=== PATIENT | female | born 1960 | race Caucasian/White ===

== ENCOUNTER 2017-07-14 09:14 | Day surgery (SDC) | payer OTHER ==
[2017-07-14] MEDS ORDERED: LIDOCAINE 2% (SDV) 5 ML INJ (10:16)
[2017-07-14] MEDS ORDERED: PROPOFOL 60 ML (10:16)
[2017-07-14] MEDS ORDERED: FENTAnyl 50 MCG/ML VIAL (10:16)
== END 2017-07-14 15:00 | disposition home or self-care (01) ==
LOC: GIL 09:14
DX: Z12.11 Encounter for screening for malignant neoplasm of colon (principal); D12.5 Benign neoplasm of sigmoid colon; K44.9 Diaphragmatic hernia without obstruction or gangrene; K21.9 Gastro-esophageal reflux disease without esophagitis; K57.90 Diverticulosis of intestine, part unspecified, without perforation or abscess without bleeding; K64.8 Other hemorrhoids; I10 Essential (primary) hypertension
CPT/HCPCS: 43239; 87081; 88305

== ENCOUNTER 2017-12-22 05:56 | Inpatient (IN) | payer OTHER ==
[2017-12-22] MEDS ORDERED: GLYCOPYRROLATE 0.4 MG INJ (06:29)
[2017-12-22] MEDS ORDERED: PROPOFOL 20 ML (06:29)
[2017-12-22] MEDS ORDERED: MIDAZOLAM 1 MG/ML 2 ML INJ (06:29)
[2017-12-22] MEDS ORDERED: ROCURONIUM 50 MG INJ (06:29)
[2017-12-22] MEDS ORDERED: LIDOCAINE 2% (SDV) 5 ML INJ (06:29)
[2017-12-22] MEDS ORDERED: FENTAnyl 50 MCG/ML VIAL (06:29)
[2017-12-22] MEDS ORDERED: NEOSTIGMINE 3 MG/3 ML SYRINGE (06:29)
[2017-12-22] MEDS ORDERED: DEXTROSE 5%-LR 1,000 ML IV (06:30)
[2017-12-22] MEDS ORDERED: NALOXONE (0.4 MG/ML) INJ IV (06:30)
[2017-12-22] MEDS ORDERED: CEFAZOLIN 2 GM/50 ML (PMX) 50 ML IVPB (06:30)
[2017-12-22] MEDS ORDERED: morphine SULFATE/PF (10 MG/10 ML) INJ (06:30)
[2017-12-22] MEDS ORDERED: ONDANSETRON 4 MG INJ (06:31)
[2017-12-22] MEDS ORDERED: DEXAMETHASONE 4 MG/ML 1 ML INJ (06:31)
[2017-12-22] MEDS ORDERED: BUPIVACAINE 0.75%/DEXT (SPINAL) 2 ML INJ (07:22)
[2017-12-22] MEDS ORDERED: FLUMAZENIL 0.5 MG INJ (10:30)
[2017-12-22] MEDS ORDERED: DIPHENHYDRAMINE 50 MG CAP PO (10:30)
[2017-12-22] MEDS: KETOROLAC 30 MG INJ IV ×3 (10:30→22:17)
[2017-12-22] MEDS ORDERED: HYDROmorphONE 1 MG/ML SYG IV (10:30)
[2017-12-22] MEDS ORDERED: NALOXONE (0.4 MG/ML) INJ (10:30)
[2017-12-22] MEDS ORDERED: BISACODYL (EC) 5 MG TAB PO (10:30)
[2017-12-22] MEDS: LACTATED RINGER'S 1,000 ML IV ×3 (10:51→22:56)
[2017-12-22] MEDS ORDERED: OXYCODONE/ACETAMINOPHEN (5/325) TAB PO ×2 (11:00)
[2017-12-22] MEDS ORDERED: ONDANSETRON 4 MG INJ IV (11:00)
[2017-12-22] MEDS ORDERED: HYDROmorphONE 1 MG/5 ML IV SYRINGE IV (11:00)
[2017-12-22] MEDS: HYDROmorphONE 1 MG/5 ML IV SYRINGE IV ×2 (11:03→11:41)
[2017-12-22] MEDS: ONDANSETRON 4 MG INJ IV (11:43)
[2017-12-22] MEDS: METOCLOPRAMIDE 10 MG TAB PO ×3 (12:00→23:00)
[2017-12-22] MEDS: CEFAZOLIN 1 GM/50 ML (PMX) 50 ML IVPB ×2 (14:21→22:15)
[2017-12-22] MEDS: PANTOPRAZOLE SODIUM 20 MG TABEC PO (17:30)
[2017-12-22] MEDS: DOCUSATE SODIUM 100 MG CAP PO (20:35)
[2017-12-22] MEDS: RANITIDINE 150 MG TAB PO (20:35)
[2017-12-22] MEDS: ZOLPIDEM 5 MG TAB PO (22:19)
[2017-12-23 05:16] LABS: ADD MAN DIFF? NO
[2017-12-23 05:21] LABS: WHITE BLOOD COUNT 10.9 10^3/ul (4.8-10.8)
[2017-12-23 05:21] LABS: BASOPHILS % 0.2 % (0.0-2.0); EOSINOPHILS % 0.3 % (0.0-7.0); HEMATOCRIT 32.9 % (37.0-47.0); HEMOGLOBIN 10.8 g/dl (12.0-16.0); LYMPHOCYTES # 2.1 10^3/ul (0.8-2.9); LYMPHOCYTES % 18.8 % (15.0-51.0); MEAN CORPUSCULAR HEMOGLOBIN 30.1 pg (29.0-33.0); MEAN CORPUSCULAR HGB CONC 32.8 g/dl (32.0-37.0); MEAN CORPUSCULAR VOLUME 91.6 fl (82.0-101.0); MEAN PLATELET VOLUME 11.3 fl (7.4-10.4); MONOCYTE # 0.9 10^3/ul (0.3-0.9); MONOCYTES % 7.9 % (0.0-11.0); NEUTROPHIL # 7.9 10^3/ul (1.6-7.5); NEUTROPHILS % 72.4 % (39.0-77.0); PLATELET COUNT 195 10^3/UL (140-415); RED BLOOD COUNT 3.59 10^6/ul (4.20-5.40); RED CELL DISTRIBUTION WIDTH 13.5 % (11.5-14.5)
[2017-12-23] MEDS: KETOROLAC 30 MG INJ IV ×4 (05:33→23:08)
[2017-12-23] MEDS: CEFAZOLIN 1 GM/50 ML (PMX) 50 ML IVPB ×3 (05:33→21:25)
[2017-12-23] MEDS: PANTOPRAZOLE SODIUM 20 MG TABEC PO ×2 (05:34→17:47)
[2017-12-23] MEDS: METOCLOPRAMIDE 10 MG TAB PO ×4 (05:34→23:11)
[2017-12-23] MEDS: LACTATED RINGER'S 1,000 ML IV ×2 (05:43→18:12)
[2017-12-23 05:46] LABS: ANION GAP 6 (8-16); BLOOD UREA NITROGEN 6 mg/dl (7-20); CARBON DIOXIDE 29 mmol/L (21-31); CHLORIDE 105 mmol/L (97-110); CREATININE 0.51 mg/dl (0.44-1.00); POTASSIUM 4.3 mmol/L (3.5-5.1); SODIUM 136 mmol/L (135-144)
[2017-12-23] MEDS: HYDROCHLOROTHIAZIDE 12.5 MG CAP PO (08:41)
[2017-12-23] MEDS: RANITIDINE 150 MG TAB PO ×2 (08:43→21:26)
[2017-12-23] MEDS: DOCUSATE SODIUM 100 MG CAP PO ×2 (08:43→21:26)
[2017-12-23] MEDS: LORATADINE 10 MG TAB PO (08:44)
[2017-12-23] MEDS ORDERED: LORATADINE 10 MG TAB PO (09:00)
[2017-12-23] MEDS ORDERED: HYDROCHLOROTHIAZIDE 12.5 MG CAP PO (09:00)
[2017-12-23] MEDS: BISACODYL (EC) 5 MG TAB PO (11:46)
[2017-12-23] MEDS: HYDROCODONE/APAP (5/325) TAB PO ×2 (16:36→17:47)
[2017-12-24] MEDS: LACTATED RINGER'S 1,000 ML IV (01:35)
[2017-12-24] MEDS: KETOROLAC 30 MG INJ IV ×4 (05:10→22:30)
[2017-12-24] MEDS: CEFAZOLIN 1 GM/50 ML (PMX) 50 ML IVPB ×3 (05:13→21:31)
[2017-12-24] MEDS: PANTOPRAZOLE SODIUM 20 MG TABEC PO ×2 (05:14→18:15)
[2017-12-24] MEDS: METOCLOPRAMIDE 10 MG TAB PO ×3 (05:14→18:15)
[2017-12-24 06:08] LABS: ADD MAN DIFF? NO
[2017-12-24 06:10] LABS: BASOPHIL # 0.1 10^3/ul (0.0-0.1); BASOPHILS % 0.5 % (0.0-2.0); EOSINOPHILS # 0.3 10^3/ul (0.0-0.5); EOSINOPHILS % 3.5 % (0.0-7.0); HEMATOCRIT 39.5 % (37.0-47.0); HEMOGLOBIN 12.6 g/dl (12.0-16.0); LYMPHOCYTES # 2.9 10^3/ul (0.8-2.9); LYMPHOCYTES % 29.7 % (15.0-51.0); MEAN CORPUSCULAR HEMOGLOBIN 29.5 pg (29.0-33.0); MEAN CORPUSCULAR HGB CONC 31.9 g/dl (32.0-37.0); MEAN CORPUSCULAR VOLUME 92.5 fl (82.0-101.0); MONOCYTE # 0.7 10^3/ul (0.3-0.9); MONOCYTES % 7.2 % (0.0-11.0); NEUTROPHIL # 5.7 10^3/ul (1.6-7.5); NEUTROPHILS % 58.8 % (39.0-77.0); PLATELET COUNT 201 10^3/UL (140-415); RED BLOOD COUNT 4.27 10^6/ul (4.20-5.40); RED CELL DISTRIBUTION WIDTH 13.7 % (11.5-14.5)
[2017-12-24 06:10] LABS: WHITE BLOOD COUNT 9.6 10^3/ul (4.8-10.8)
[2017-12-24] MEDS: HYDROCHLOROTHIAZIDE 12.5 MG CAP PO (09:15)
[2017-12-24] MEDS: DOCUSATE SODIUM 100 MG CAP PO ×2 (09:16→21:31)
[2017-12-24] MEDS: LORATADINE 10 MG TAB PO (09:16)
[2017-12-24] MEDS: RANITIDINE 150 MG TAB PO ×2 (09:16→21:31)
[2017-12-24] MEDS: IOHEXOL 300MG/ML 150 ML BTL (10:35)
[2017-12-24] MEDS: SOD CHLORIDE 0.9% 100 ML (10:35)
[2017-12-25] MEDS: ZOLPIDEM 5 MG TAB PO ×2 (02:47→20:31)
[2017-12-25] MEDS: KETOROLAC 30 MG INJ IV ×2 (04:30→14:02)
[2017-12-25] MEDS: METOCLOPRAMIDE 10 MG TAB PO ×4 (06:42→17:23)
[2017-12-25] MEDS: CEFAZOLIN 1 GM/50 ML (PMX) 50 ML IVPB ×3 (06:42→20:34)
[2017-12-25] MEDS: PANTOPRAZOLE SODIUM 20 MG TABEC PO ×2 (06:42→17:23)
[2017-12-25] MEDS: LORATADINE 10 MG TAB PO (08:51)
[2017-12-25] MEDS: RANITIDINE 150 MG TAB PO ×2 (08:51→20:31)
[2017-12-25] MEDS: DOCUSATE SODIUM 100 MG CAP PO ×2 (08:51→20:31)
[2017-12-25] MEDS: HYDROCHLOROTHIAZIDE 12.5 MG CAP PO (08:52)
[2017-12-25] MEDS: HYDROCODONE/APAP (5/325) TAB PO (14:46)
[2017-12-26] MEDS: METOCLOPRAMIDE 10 MG TAB PO ×3 (00:15→12:30)
[2017-12-26] MEDS: CEFAZOLIN 1 GM/50 ML (PMX) 50 ML IVPB ×2 (06:16→15:45)
[2017-12-26] MEDS: PANTOPRAZOLE SODIUM 20 MG TABEC PO (06:16)
[2017-12-26] MEDS: DOCUSATE SODIUM 100 MG CAP PO (09:18)
[2017-12-26] MEDS: RANITIDINE 150 MG TAB PO (09:18)
[2017-12-26] MEDS: HYDROCHLOROTHIAZIDE 12.5 MG CAP PO (09:19)
[2017-12-26] MEDS: LORATADINE 10 MG TAB PO (09:20)
[2017-12-26] MEDS: HYDROCODONE/APAP (5/325) TAB PO ×2 (09:38→12:38)
== END 2017-12-26 18:30 | disposition home or self-care (01) | DRG 743 ==
LOC: SDS 05:56 → REC 10:12 → MS1 14:00
PROC: 0UT90ZZ Resection of Uterus, Open Approach (ICD-10-PCS; principal; 2017-12-22 07:30)
PROC: 0UT20ZZ Resection of Bilateral Ovaries, Open Approach (ICD-10-PCS; 2017-12-22 07:30)
PROC: 0UT50ZZ Resection of Right Fallopian Tube, Open Approach (ICD-10-PCS; 2017-12-22 07:30)
DX: D27.0 Benign neoplasm of right ovary (principal); K76.0 Fatty (change of) liver, not elsewhere classified; Q51.4 Unicornate uterus; E66.9 Obesity, unspecified; I10 Essential (primary) hypertension
CPT/HCPCS: 71046; 71260; 80051; 82565; 84520; 85025; 87086; 88305

== ENCOUNTER → 2018-10-06 | Outpatient (CLI) | payer OTHER ==
[2018-10-06] MEDS: NITROGLYCERIN AEROSOL (4.9 GM) (11:07)
[2018-10-06] MEDS: SOD CHLORIDE 0.9% 100 ML (11:10)
[2018-10-06] MEDS: IOHEXOL 100 ML (11:10)
[2018-10-06] MEDS: NITROGLYCERIN AEROSOL (4.9 GM) SL (11:53)
== END | disposition home or self-care (01) ==
LOC: C/S 09:29
DX: R93.1 Abnormal findings on diagnostic imaging of heart and coronary circulation (principal); R07.9 Chest pain, unspecified
CPT/HCPCS: 75571; 75571-59; 75574